=== PATIENT | male | born 1955 | race Caucasian/White ===

== ENCOUNTER 2018-12-03 04:05 | Outpatient (CLI) | payer MEDICARE, MEDICAID ==
[~2018-12-03 04:05] MED LIST: ALPR-164 PO; ASPI-611 PO; COMIN IH; CYCL-1 PO; LEVO50TA8 PO; OXYC-145 PO; OXYC-511 PO; SPIIN INH
== END 2018-12-03 23:59 | disposition home or self-care (01) ==
LOC: DIABETIC 04:05
PROVIDERS: ATTEND Family Medicine
DX: R63.4 Abnormal weight loss (principal); J44.9 Chronic obstructive pulmonary disease, unspecified
CPT/HCPCS: 97802

== ENCOUNTER 2019-04-05 09:20 | Emergency (ER) | payer BC, MEDICAID ==
[~2019-04-05] VITALS: Ht 175.3 cm; Wt 53.8 kg
[2019-04-05 09:27] VITALS: BP 123/68
[2019-04-05] MEDS ORDERED: HYDROcodone/acetaminophen 10/325mg tab PO ONE (10:40)
== END 2019-04-05 11:16 | disposition home or self-care (01) ==
LOC: ER 09:20
DX: M54.5 Low back pain (principal); G89.29 Other chronic pain; M25.551 Pain in right hip; M25.552 Pain in left hip; J44.9 Chronic obstructive pulmonary disease, unspecified; E03.9 Hypothyroidism, unspecified; M19.90 Unspecified osteoarthritis, unspecified site; F32.9 Major depressive disorder, single episode, unspecified; Z98.890 Other specified postprocedural states; Z56.0 Unemployment, unspecified; Z88.6 Allergy status to analgesic agent; Z88.8 Allergy status to other drugs, medicaments and biological substances; Z79.82 Long term (current) use of aspirin; Z79.899 Other long term (current) drug therapy
CPT/HCPCS: 99282

== ENCOUNTER 2019-04-06 19:42 | Emergency (ER) | payer BC, MEDICAID ==
[~2019-04-06] VITALS: Ht 177.8 cm; Wt 53.0 kg
[2019-04-06 19:53] VITALS: BP 131/94
[2019-04-06] MEDS ORDERED: ibuprofen 200mg tablet PO ONE (21:05)
[2019-04-06] MEDS ORDERED: HYDROcodone/acetaminophen 10/325mg tab PO ONE (21:35)
== END 2019-04-06 21:52 | disposition home or self-care (01) ==
LOC: ER 19:43
DX: S40.012A Contusion of left shoulder, initial encounter (principal); S70.02XA Contusion of left hip, initial encounter; G89.29 Other chronic pain; M54.6 Pain in thoracic spine; J44.9 Chronic obstructive pulmonary disease, unspecified; E03.9 Hypothyroidism, unspecified; M19.90 Unspecified osteoarthritis, unspecified site; F32.9 Major depressive disorder, single episode, unspecified; F17.200 Nicotine dependence, unspecified, uncomplicated; F10.99 Alcohol use, unspecified with unspecified alcohol-induced disorder; Z56.0 Unemployment, unspecified; Z88.6 Allergy status to analgesic agent; Z88.8 Allergy status to other drugs, medicaments and biological substances; Z79.82 Long term (current) use of aspirin; Z79.899 Other long term (current) drug therapy; W10.8XXA Fall (on) (from) other stairs and steps, initial encounter; Y93.89 Activity, other specified; Y92.89 Other specified places as the place of occurrence of the external cause; Y99.8 Other external cause status; Y90.9 Presence of alcohol in blood, level not specified
CPT/HCPCS: 73030; 73502; 93005; 99283

== ENCOUNTER 2019-09-11 17:48 | Emergency (ER) | payer BC, MEDICAID ==
[~2019-09-11] VITALS: Ht 175.3 cm; Wt 55.2 kg
[2019-09-11] MEDS ORDERED: ipratropium/albuterol 3ml nebule NEB ONE (18:15)
[2019-09-11] MEDS ORDERED: morphine 5 MG/ML injection IM ONE (18:15)
[2019-09-11] MEDS ORDERED: normal saline 1000ML IV soln IVB ONE (18:15)
[2019-09-11 18:45] LABS: ALANINE AMINOTRANSFERASE 20 U/L (12-78); ALBUMIN/GLOBULIN RATIO 0.8 (1.1-1.5); ALKALINE PHOSPHATASE 94 IU/L (46-116); ANION GAP 9 (8-16); ASPARTATE AMINO TRANSFERASE 45 U/L (10-37); BILIRUBIN,TOTAL 0.1 MG/DL (0.1-1.0); BLOOD UREA NITROGEN 7 MG/DL (7-18); CALCIUM 8.1 MG/DL (8.5-10.1); CHLORIDE 111 MMOL/L (99-107); GLUCOSE 100 MG/DL (70-104); POTASSIUM 3.9 MMOL/L (3.5-5.1); SODIUM 150 MMOL/L (135-145); TOTAL CARBON DIOXIDE 29.7 MMOL/L (24-32); TOTAL PROTEIN 6.7 G/DL (6.4-8.2); eGFR > 90 ML/MIN
[2019-09-11] MEDS ORDERED: morphine 10mg/ml inj. IM ONE (18:45)
[2019-09-11 18:52] LABS: BASOPHILS # (AUTO) 0.1 X10'3 (0-0.2); BASOPHILS % (AUTO) 1.9 % (0-1); EOSINOPHILS # (AUTO) 0.2 X10'3 (0-0.9); HEMATOCRIT 34.8 % (42.0-52.0); HEMOGLOBIN 11.1 g/dl (14.0-17.9); LYMPHOCYTES # (AUTO) 1.5 X10'3 (1.1-4.8); LYMPHOCYTES % (AUTO) 19.4 % (21-51); MEAN CORPUSCULAR HEMOGLOBIN 29.6 PG (27.0-31.0); MEAN CORPUSCULAR VOLUME 92.5 FL (78-98); MEAN PLATELET VOLUME 9.3 FL (7.4-10.4); MONOCYTES # (AUTO) 0.5 X10'3 (0-0.9); MONOCYTES % (AUTO) 6.7 % (2-12); NEUTROPHILS # (AUTO) 5.3 X10'3 (1.8-7.7); PLATELET COUNT 236 X10'3 (140-440); RED BLOOD COUNT 3.76 X10'6 (4.70-6.10); RED CELL DISTRIBUTION WIDTH 23.2 % (11.5-14.5); WHITE BLOOD COUNT 7.7 X10'3 (4.5-11.0)
[2019-09-11 19:54] LABS: ANISOCYTOSIS 3+; PLATELET ESTIMATE NORMAL; TARGET CELLS FEW
[2019-09-11 20:10] VITALS: BP 122/82
== END 2019-09-11 20:12 | disposition home or self-care (01) ==
LOC: ER 17:49
DX: J44.9 Chronic obstructive pulmonary disease, unspecified (principal); E86.0 Dehydration; G89.29 Other chronic pain; E03.9 Hypothyroidism, unspecified; M19.90 Unspecified osteoarthritis, unspecified site; F32.9 Major depressive disorder, single episode, unspecified; Z98.890 Other specified postprocedural states; Z56.0 Unemployment, unspecified; Z88.5 Allergy status to narcotic agent; Z88.8 Allergy status to other drugs, medicaments and biological substances; Z79.82 Long term (current) use of aspirin; Z79.899 Other long term (current) drug therapy
CPT/HCPCS: 36415; 71045; 80053; 83880; 85025; 94640; 96372; 99284; J2270; J7030; 94760

== ENCOUNTER 2021-02-26 21:17 | Emergency (ER) | payer BC, MEDICAID ==
[~2021-02-26] VITALS: Ht 177.8 cm; Wt 59.0 kg
[~2021-02-26 21:17] MED LIST changes: -OXYC-511 PO; +OXYC1TAB17 PO
[2021-02-26 22:48] LABS: BASOPHILS % (AUTO) 0.6 % (0-1); EOSINOPHILS # (AUTO) 0.1 X10'3 (0-0.9); EOSINOPHILS % (AUTO) 1.4 % (0-6); HEMOGLOBIN 14.8 g/dl (14.0-17.9); LYMPHOCYTES # (AUTO) 2.2 X10'3 (1.1-4.8); LYMPHOCYTES % (AUTO) 36.1 % (21-51); MEAN CORPUSCULAR HEMOGLOBIN 31.4 PG (27.0-31.0); MEAN CORPUSCULAR VOLUME 95.4 FL (78-98); MEAN PLATELET VOLUME 9.2 FL (7.4-10.4); MONOCYTES # (AUTO) 0.7 X10'3 (0-0.9); MONOCYTES % (AUTO) 10.6 % (2-12); NEUTROPHILS # (AUTO) 3.2 X10'3 (1.8-7.7); NEUTROPHILS % (AUTO) 51.3 % (42-75); PLATELET COUNT 288 X10'3 (140-440); RED BLOOD COUNT 4.72 X10'6 (4.70-6.10); RED CELL DISTRIBUTION WIDTH 19.1 % (11.5-14.5); WHITE BLOOD COUNT 6.2 X10'3 (4.5-11.0)
[2021-02-26 23:13] LABS: ALANINE AMINOTRANSFERASE 15 U/L (12-78); ALBUMIN 3.6 G/DL (3.4-5.0); ALBUMIN/GLOBULIN RATIO 0.8 (1.1-1.5); ALKALINE PHOSPHATASE 83 IU/L (46-116); ANION GAP 12 (8-16); ASPARTATE AMINO TRANSFERASE 33 U/L (10-37); BILIRUBIN,TOTAL 0.4 MG/DL (0.1-1.0); BLOOD UREA NITROGEN 4 MG/DL (7-18); BUN/CREATININE RATIO 4.8 (5.4-32.0); CHLORIDE 104 MMOL/L (99-107); CREATININE 0.83 MG/DL (0.60-1.10); GLUCOSE 94 MG/DL (70-104); POTASSIUM 3.6 MMOL/L (3.5-5.1); SODIUM 144 MMOL/L (135-145); TOTAL CARBON DIOXIDE 28.4 MMOL/L (24-32); TOTAL PROTEIN 8.1 G/DL (6.4-8.2); eGFR > 90 ML/MIN
[2021-02-26 23:25] LABS: ANISOCYTOSIS 2+; LARGE PLATELETS FEW; PLATELET ESTIMATE NORMAL
[2021-02-26] MEDS ORDERED: CefTRIAXone/D5W-Rocephin 1gm 50 ML IV ONE (23:30)
[2021-02-26] MEDS ORDERED: normal saline 1000ml 1,000 ML IV ONE (23:30)
--- NOTE | 2021-02-27 01:21 | NUR ---
Patient says he doesnt want to be transferred to [facility] for Neurosurgical consult, he wants to leave [place]. I will advised
[2021-02-27] MEDS ORDERED: normal saline 1000ml 1,000 ML IV ONE (01:50)
[2021-02-27] MEDS ORDERED: ondansetron/PF 4mg/2ml inj IV ONE (03:15)
[2021-02-27] MEDS ORDERED: morphine 4 MG/ML inj SYRINge IV ONE (03:15)
[2021-02-27] MEDS ORDERED: HYDR-3965 PO (04:52)
[2021-02-27 05:12] VITALS: BP 106/77
== END 2021-02-27 05:18 | disposition left against medical advice (07) ==
LOC: ER 21:18
DX: S22.069A Unspecified fracture of T7-T8 vertebra, initial encounter for closed fracture (principal); Z20.822 Contact with and (suspected) exposure to COVID-19; X58.XXXA Exposure to other specified factors, initial encounter; Y93.89 Activity, other specified; Y92.89 Other specified places as the place of occurrence of the external cause; Y99.8 Other external cause status
CPT/HCPCS: 36415; 70450; 71045; 72125; 72128; 72131; 80053; 83605; 83880; 84484; 85008; 85025; 87040; 87635; 93005; 96361; 96365; 96375; 99291; C9803; J0696; J2270; J2405; J7030